=== PATIENT | male | born 1935 | race Caucasian/White ===

== ENCOUNTER → 2016-08-09 | Outpatient (CLI) | payer OTHER ==
[~2016-08-09] MED LIST: ACET-1138 PO; ASPEC81 PO; CLB200 PO; RXC5 PO; SNK PO; [UNRECOGNIZED DRUG - CODE] PO
--- NOTE | 2016-08-09 11:56 | DIAGNOSTIC IMAGING REPORT ---
VIDEO SWALLOW HISTORY: Dysphagia PHARYNGOESOPHAGEAL DYSPHAGIA TECHNIQUE: Video fluoroscopic evaluation of swallowing was performed in the AP and lateral projections by the speech pathology staff. The patient is fed nectar-thick and thin liquid barium, a barium coated wafer, and barium pudding. FLUOROSCOPY TIME: 2 minutes. COMPARISON STUDY: None. FINDINGS: There is normal hyoid excursion and epiglottic deflection. No significant penetration or aspiration identified. Swallowing function is within normal limits. There is severe spasm of the meniscus mid to distal esophagus. Transit of contrast to the stomach is compromised. Esophagram and upper GI suggested as follow-up. IMPRESSION: 1. Study is negative for aspiration. 2. Considerable spasm and irritability of the distal esophagus with poor transit of contrast through the area of spasm and irritability. recommendation is made for endoscopic or UGI/esophagram follow-up 2. Please see the speech pathologist report for detailed findings and recommendations. Electronically signed by: Koko Pink M.D. 08/09/2016 11:55 AM Dictated Date/Time: 08/09/2016 11:52 AM
--- NOTE | 2016-08-09 14:08 | SWALLOWING EVALUATION ---
REFERRING SPEECH PATHOLOGIST: n/a HISTORY: This 81 year-old man was referred for a VFSS at [facility] in order to address c/o solid food dysphagia, weight loss, and increased production of thick, clear saliva. The patient has a PMH significant for colon CA s/p resection and chemotherapy (no XRT), arthritis, and hip replacement. He denies taking any medication for CHAVA. He reports that he recently had an EGD completed, but he could not tell me any results. His women's activities adviser is the referring physician for this study. Currently the patient's diet level is regular as tolerated. PROCEDURE: The patient was seen in the Radiology Department of [facility] for the VFSS. Cursory examination of the oral cavity revealed adequate dentition. Movement of the articulators was WNL. The patient was seated on a stool and was viewed in both the Anterior-Posterior (A-P) and Lateral planes. Volitional phonation exercises completed in the A-P plane revealed bilateral vocal fold movement and vocal intensity within functional limits. In the lateral plane, the patient was given the following boluses: 1 tsp. thin liquid barium x 2, single swallow thin liquid barium self-presented from a cup, sequential swallows of thin liquid barium self-presented from a cup, 1 tsp. nectar-thick liquid barium, single swallow nectar-thick liquid barium self-presented from a cup, 1 tsp. barium pudding, and 1 club cracker with barium pudding. The patient was then repositioned into the A-P plane and given 1 tsp. barium pudding. RESULTS: Oral Stage: No interlabial bolus loss. Cohesive bolus between tongue and palate during oral bolus hold. Timely and efficient mastication. Brisk tongue motion for bolus transport. Complete oral clearance after the swallow. Initiation of pharyngeal swallow when the bolus head was at the posterior angle of the ramus. Oral stage of swallow was WFL. Pharyngeal Stage: Soft palate elevation, laryngeal elevation, anterior hyoid excursion, epiglottic inversion, and laryngeal vestibular closure were all complete. Pharyngeal stripping wave is diminished. Pharyngeal contraction is complete. Distention and duration of PES opening was complete. No contrast between tongue base and pharyngeal wall. Complete pharyngeal clearance after the swallow. No penetration or aspiration during this study. The pharyngeal stage of the swallow was WFL. Esophageal Stage: Proximal esophageal bolus retention with appearance of nutcracker esophagus. SUMMARY/RECOMMENDATIONS: This patient presents with normal oral-pharyngeal swallowing; however he demonstrates marked s/s esophageal dysfunction. The following is recommended: 1. SLIPPERY diet: choose foods that are moist, loose, slippery; avoid foods that are dry, doughy, thick, tough; use condiments liberally to make foods slippery 2. Compensatory Strategies: sit fully upright for all meals and remain upright for 30 minutes after eating/drinking; keep head of bed elevated at least 30-degrees at ALL times (even for sleep); alternate solids and liquids 1:1 during meals; eat small amounts more frequently during the day instead of large meals; stay well hydrated; avoid icy cold beverages with meals 3. Consideration of completion of Upper GI Series or Barium Swallow Study. 4. Pt also c/o issues with irregular bowel movement. Should consider further f/u with gastroenterology. A summary of the results and recommendations was discussed with the patient and his immediately following the study. They verbalized understanding and are expecting f/u with the referring physician. Fortunately, Dr. Barba was in the hospital today and I was able to directly report the results of this study to him and show him the images. He will f/u with the patient. Thank you for referral of this patient. Please contact me at if any additional information is needed.
== END | disposition home or self-care (01) ==
LOC: C.RAD 11:02
PROVIDERS: ATTEND Internal Medicine Gastroenterology
DX: R13.14 Dysphagia, pharyngoesophageal phase (principal); R63.3 Feeding difficulties

== ENCOUNTER → 2016-09-05 | Outpatient (CLI) | payer OTHER ==
--- NOTE | 2016-09-05 10:35 | DIAGNOSTIC IMAGING REPORT ---
(BARIUM SWALLOW) ESOPHAGUS CLINICAL HISTORY: ESOPHAGEAL DYSPHAGIAdysphagia COMPARISON STUDY: None FLUOROSCOPY TIME: 3.1 minutes. FINDINGS: Patient initiates swallowing function well. There is no evidence for aspiration. Esophageal motility of the proximal to mid aspect of the esophagus is diminished. There is moderate esophageal distention. There is a fixed lateral hernia. There is evidence for spasm of the distal esophagus at the gastroesophageal junction. There is a large fixed hiatal hernia. There is moderate gastroesophageal reflux. IMPRESSION: 1. Findings of developing achalasia of the proximal to mid esophagus. 2. Fixed hiatal hernia with mild gastroesophageal reflux. 3. Spasm of the distal esophagus and gastroesophageal junction 4. The barium tablet does not pass to the stomach secondary to esophageal junction spasm. Electronically signed by: Koko Pink M.D. 09/05/2016 10:34 AM Dictated Date/Time: 09/05/2016 10:30 AM
== END | disposition home or self-care (01) ==
LOC: C.RAD 09:55
PROVIDERS: ATTEND Internal Medicine Gastroenterology
DX: R13.14 Dysphagia, pharyngoesophageal phase (principal); K44.9 Diaphragmatic hernia without obstruction or gangrene; K22.4 Dyskinesia of esophagus

== ENCOUNTER 2019-03-31 09:37 | Inpatient (IN) ==
--- NOTE | 2019-03-31 10:00 | Emergency Department Note ---
Entered by Sebastian Van acting as a scribe for History of Present Illness General Chief complaint: GI Assessment Stated complaint: CONSTIPATION OR BLOCKAGE Time Seen by Provider: 03/31/19 09:44 Source: patient Limitations: no limitations History of Present Illness Onset (ago): day(s) 2 Location: abdomen Pain Consistency: + intermittent Maximum Pain Intensity: 0 Quality: + other (bloating) Associated symptoms: + other (straining for produce bowel movement); no loss of appetite The patient is a 83 year old male who presents to the Emergency Room with complaints of intermittent abdominal bloating. The patient states he had an X- Ray done two days ago and notes he had a lot of bloating. He states the X-Ray showed a blockage. He states he never had this before and denies having bowel obstruction before. He states his last bowel movement was yesterday. He states he had to strain for the bowel movement and states that is abnormal for him. He notes he has been having diarrhea for a couple years. The patient denies nausea, fevers, and blood in bowel movements. The patient states he had colon cancer 16 years ago. He states he had surgery to take out the cancer. He notes he had a colonoscopy a couple years ago. he states he had previous bowel surgery. He states he has been eating well. He states he has not been drinking enough water but that he drinks a lot of tea. He states he does not take any medications. Denies any recent illness. No recent trauma. Patient said he saw his GI specialist on Friday due to his recent bloating and constipation and they sent him for an outpatient x-ray. He states he was called this morning and told to come to the ER immediately. [facility] records show the patient's X-Ray results. Impression: Probable pneumoperitoneum, highly concerning for bowel perforation. Recommend CT for further evaluation. Home Medications Home Medications Medication Instructions Recorded Confirmed Type CHRIS (MORINDA CITRIFOLIA) (CHRIS 4 oz PO QAM #0 07/04/15 03/31/19 History JUICE) Tumeric 1 tab PO QAM 03/31/19 03/31/19 History loperamide [Imodium A-D] 2 mg PO Q2D@0800 03/31/19 03/31/19 History multivitamin 2 tab PO UD 03/31/19 03/31/19 History Allergies Allergy/AdvReac Type Severity Reaction Status Date / Time No Known Allergies Allergy Unverified 03/31/19 10:19 Past Med/Surg History Medical History Colon cancer Parkinson disease Surgical History S/P laparoscopic procedure Family History Other Family history non-contributory Social History Preferred Language: Welsh Communication Ability: Effective 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 and A total of 10 systems reviewed and were otherwise negative Physical Exam Vital Signs Vital Signs - 24 hr 03/31/19 09:40 03/31/19 10:07 03/31/19 10:30 Temperature 36.4 C L Temperature Source Oral Pulse Rate 77 66 63 Pulse Rate from SpO2 Sensor 69 63 Respiratory Rate 18 19 19 Respiratory Effort / Characteristics Non-Labored Spontaneous Respiratory Depth Normal Respiratory Pattern Regular Blood Pressure 162/82 H 144/75 H 115/67 Blood Pressure Mean 108 82 86 Blood Pressure Position Sitting Pulse Oximetry 99 96 97 Oxygen Delivery Method Room Air Room Air Room Air Sepsis Recent Fever Within 48 Hours No Sepsis New/Unexplained Change in Mental Status No Sepsis Action Taken by Nursing No Action Required 03/31/19 11:00 03/31/19 11:30 03/31/19 12:00 Temperature Temperature Source Pulse Rate 68 61 63 Pulse Rate from SpO2 Sensor 67 62 62 Respiratory Rate 17 19 17 Respiratory Effort / Characteristics Respiratory Depth Respiratory Pattern Blood Pressure 126/76 129/78 138/84 Blood Pressure Mean 96 101 94 Blood Pressure Position Pulse Oximetry 98 98 99 Oxygen Delivery Method Room Air Sepsis Recent Fever Within 48 Hours Sepsis New/Unexplained Change in Mental Status Sepsis Action Taken by Nursing 03/31/19 12:47 03/31/19 13:12 03/31/19 13:30 Temperature Temperature Source Pulse Rate 60 62 61 Pulse Rate from SpO2 Sensor 59 L Respiratory Rate 18 14 18 Respiratory Effort / Characteristics Respiratory Depth Respiratory Pattern Blood Pressure 131/76 157/87 H 149/89 H Blood Pressure Mean 87 109 116 Blood Pressure Position Pulse Oximetry 99 99 96 Oxygen Delivery Method Sepsis Recent Fever Within 48 Hours Sepsis New/Unexplained Change in Mental Status Sepsis Action Taken by Nursing 03/31/19 14:01 03/31/19 14:14 03/31/19 14:30 Temperature Temperature Source Pulse Rate 68 61 60 Pulse Rate from SpO2 Sensor 64 61 Respiratory Rate 20 16 17 Respiratory Effort / Characteristics Respiratory Depth Respiratory Pattern Blood Pressure 181/92 H 142/88 H 155/81 H Blood Pressure Mean 108 103 119 Blood Pressure Position Pulse Oximetry 95 98 Oxygen Delivery Method Sepsis Recent Fever Within 48 Hours Sepsis New/Unexplained Change in Mental Status Sepsis Action Taken by Nursing 03/31/19 15:00 03/31/19 15:30 Temperature Temperature Source Pulse Rate 66 65 Pulse Rate from SpO2 Sensor 69 Respiratory Rate 18 17 Respiratory Effort / Characteristics Respiratory Depth Respiratory Pattern Blood Pressure 161/85 H Blood Pressure Mean 110 Blood Pressure Position Pulse Oximetry 91 92 Oxygen Delivery Method Sepsis Recent Fever Within 48 Hours Sepsis New/Unexplained Change in Mental Status Sepsis Action Taken by Nursing GENERAL: alert, well appearing, well nourished, no distress, non-toxic EYE EXAM: normal conjunctiva, PERRL and EOM's grossly intact OROPHARYNX: no exudate, no erythema, lips, buccal mucosa, and tongue normal and mucous membranes are moist NECK: supple, no nuchal rigidity, no adenopathy, non-tender LUNGS: Clear to auscultation. Normal chest wall mechanics, no w/r/r HEART: no murmurs, S1 normal and S2 normal ABDOMEN: abdomen soft, non-tender, normo-active bowel sounds, no masses, no rebound or guarding. Well-healed prior surgical scars. Mild tympany to percussion of bilateral upper quadrants. No surgical abdomen. BACK: Back is symmetrical on inspection and there is no deformity, no midline tenderness, no CVA tenderness. SKIN: no rashes and no bruising UPPER EXTREMITIES: upper extremities are grossly normal. FROM, nml pulses b/l. LOWER EXTREMITIES: No pitting edema. FROM, nml pulses b/l. NEURO EXAM: Normal sensorium, cranial nerves II-XII grossly intact, normal speech, no gross weakness of arms, no gross weakness of legs. Course Course 0946: The patient was evaluated in room C4, and a complete history and physical examination were performed. 1330: I spoke with Jumana - Donta VOSS about the patient. She states she will talk to Dr. Ibarra - General Surgery and they will evaluate the patient. 1333: I reevaluated the patient. I updated the patient on his imaging results. 1438: Dr. Ibarra is at bedside to see the patient now. 1454: I spoke with Dr. Ibarra. He recommends getting a CT of the chest and admitting the patient to medicine. 1514: I discussed the patient's case with Dr. Sams - [facility]. He will evaluate the patient for further management. Administered Medications Sodium Chloride (Nss 1000ml) 1,000 mls @ 250 mls/hr IV .Q4H MARY Stop: 04/30/19 09:59 Last Admin: 03/31/19 14:15 Dose: 250 mls/hr Documented by: [id number] Infusion: 03/31/19 14:14 Dose: 0 mls/hr Documented by: [id number] Admin: 03/31/19 10:14 Dose: 250 mls/hr Documented by: [id number] Ioversol (Optiray 320 100ml) 92 ml IV ONCE PRN PRN Reason: Interaction Checking Stop: 04/04/19 13:05 Last Admin: 03/31/19 13:07 Dose: 92 ml Documented by: [id number] Discontinued Medications Magnesium Sulfate/Dextrose (Magnesium Sulfate / D5w) 1 gm in 100 mls @ 100 mls/hr IV ONE ONE Stop: 03/31/19 12:37 Last Infusion: 03/31/19 13:01 Dose: 0 mls/hr Documented by: [id number] Admin: 03/31/19 12:01 Dose: 100 mls/hr Documented by: [id number] Piperacillin Sod/Tazobactam Sod (Zosyn) 4.5 gm in 120 mls @ 240 mls/hr IV NOW ONE Stop: 03/31/19 13:57 Last Infusion: 03/31/19 14:12 Dose: 0 mls/hr Documented by: [id number] Admin: 03/31/19 13:31 Dose: 240 mls/hr Documented by: [id number] Medical Decision Making Differential Diagnosis Differential diagnoses includes but is not limited to gastritis, peptic ulcer disease, GERD, gallbladder disease, pancreatitis, small bowel obstruction, acute coronary syndrome, pericarditis, ischemic bowel, irritable bowel disease, irritable bowel syndrome, appendicitis, diverticulitis, malignancy, hernia, urinary tract infection, torsion, perforation, trauma, infectious. Medical Records Attestation: I reviewed the patient's medical records. Home Medications Current Medication List: was personally reviewed by me Laboratory Data Attestation: I reviewed the patient's lab results. Result diagrams: 03/31/19 10:10 03/31/19 10:10 Lab Results 03/31/19 03/31/19 03/31/19 Range/Units 10:10 10:10 10:10 WBC 7.01 (4.8-10.8) K/uL RBC 4.37 L (4.7-6.1) M/uL Hgb 13.4 L (14.0-18.0) g/dL Hct 39.6 L (42-52) % MCV 90.6 (80-100) fL MCH 30.7 (25-34) pg MCHC 33.8 (32-36) g/dL RDW Std Deviation 44.3 (36.4-46.3) fL RDW Coeff of Jamaal 13.5 (11.5-14.5) % Plt Count 257 (130-400) K/uL MPV 9.9 (7.4-10.4) fL Immature Gran % (Auto) 0.1 % Neut % (Auto) 73.4 % Lymph % (Auto) 17.5 % [place] % (Auto) 6.4 % Eos % (Auto) 2.3 % Baso % (Auto) 0.3 % Immature Gran # (Auto) 0.01 (0.00-0.02) K/uL Neut # (Auto) 5.14 (1.4-6.5) K/uL Lymph # (Auto) 1.23 (1.2-3.4) K/uL [place] # (Auto) 0.45 (0.11-0.59) K/uL Eos # (Auto) 0.16 (0-0.5) K/uL Baso # (Auto) 0.02 (0-0.2) K/uL Sodium 139 (136-145) mmol/L Potassium 4.3 (3.5-5.1) mmol/L Chloride 110 H (98-107) mmol/L Carbon Dioxide 26 (21-32) mmol/L Anion Gap 3.0 (3-11) BUN 19 H (7-18) mg/dl Creatinine 1.19 (0.6-1.4) mg/dl Est Cr Clr Drug Dosing 48.2 ml/min Est GFR ( Amer) 65.5 Est GFR (Non-Af Amer) 56.5 BUN/Creatinine Ratio 16.0 (10-20) Glucose 133 H (70-99) mg/dl POC Lactic Acid William (0.90-1.70) mmol/L Calcium 8.9 (8.5-10.1) mg/dl Magnesium 1.6 L (1.8-2.4) mg/dl Total Bilirubin 0.4 (0.2-1) mg/dl AST 16 (15-37) U/L ALT 21 (12-78) U/L Alkaline Phosphatase 111 (45-117) U/L Total Protein 6.7 (6.4-8.2) gm/dl Albumin 3.6 (3.4-5.0) gm/dl Globulin 3.1 (2.5-4.0) gm/dl Albumin/Globulin Ratio 1.2 (0.9-2) Lipase 61 L (73-393) U/L Urine Color Dark Yellow Urine Appearance Clear (Clear) Urine pH 5.0 (4.5-7.5) Ur Specific [place] 1.018 (1.000-1.030) Urine Protein Negative (Negative) Urine Glucose (UA) Negative (Negative) Urine Ketones Negative (Negative) Urine Blood Negative (Negative) Urine Nitrite Negative (Negative) Urine Bilirubin Negative (Negative) Urine Urobilinogen Negative (Negative) Ur Leukocyte Esterase Negative (Negative) 03/31/19 Range/Units 10:14 WBC (4.8-10.8) K/uL RBC (4.7-6.1) M/uL Hgb (14.0-18.0) g/dL Hct (42-52) % MCV (80-100) fL MCH (25-34) pg MCHC (32-36) g/dL RDW Std Deviation (36.4-46.3) fL RDW Coeff of Jamaal (11.5-14.5) % Plt Count (130-400) K/uL MPV (7.4-10.4) fL Immature Gran % (Auto) % Neut % (Auto) % Lymph % (Auto) % [place] % (Auto) % Eos % (Auto) % Baso % (Auto) % Immature Gran # (Auto) (0.00-0.02) K/uL Neut # (Auto) (1.4-6.5) K/uL Lymph # (Auto) (1.2-3.4) K/uL [place] # (Auto) (0.11-0.59) K/uL Eos # (Auto) (0-0.5) K/uL Baso # (Auto) (0-0.2) K/uL Sodium (136-145) mmol/L Potassium (3.5-5.1) mmol/L Chloride (98-107) mmol/L Carbon Dioxide (21-32) mmol/L Anion Gap (3-11) BUN (7-18) mg/dl Creatinine (0.6-1.4) mg/dl Est Cr Clr Drug Dosing ml/min Est GFR ( Amer) Est GFR (Non-Af Amer) BUN/Creatinine Ratio (10-20) Glucose (70-99) mg/dl POC Lactic Acid William 2.08 H (0.90-1.70) mmol/L Calcium (8.5-10.1) mg/dl Magnesium (1.8-2.4) mg/dl Total Bilirubin (0.2-1) mg/dl AST (15-37) U/L ALT (12-78) U/L Alkaline Phosphatase (45-117) U/L Total Protein (6.4-8.2) gm/dl Albumin (3.4-5.0) gm/dl Globulin (2.5-4.0) gm/dl Albumin/Globulin Ratio (0.9-2) Lipase (73-393) U/L Urine Color Urine Appearance (Clear) Urine pH (4.5-7.5) Ur Specific [place] (1.000-1.030) Urine Protein (Negative) Urine Glucose (UA) (Negative) Urine Ketones (Negative) Urine Blood (Negative) Urine Nitrite (Negative) Urine Bilirubin (Negative) Urine Urobilinogen (Negative) Ur Leukocyte Esterase (Negative) Imaging Data Radiologist's Impression: Radiology results as stated below per my review and the radiologist's interpretation: CT abd pelvis oral and IV con CLINICAL HISTORY: 83 years-old Male presenting with abn outside xrays, ?obstuction/ileus vs perforation. TECHNIQUE: Multidetector CT of the abdomen and pelvis was performed after the administration of oral and intravenous contrast. IV contrast: 93 mL of Optiray 320. One or more dose lowering techniques were used consistent with the principles of ALARA (as low as reasonably achievable), including automatic expo sure control, mA or kV adjustment to individual patient size, and/or use of iterative reconstruction. COMPARISON: None. CT DOSE (mGy.cm): The estimated cumulative dose is 338.06 mGy.cm. FINDINGS: Lodge Officer topogram: Orthopedic hardware. Lung bases: Multichamber enlargement of the heart. Aortic valve calcification. No pericardial or pleural effusion. Minimal dependent changes likely atelectasis. Trace emphysema and bronchitis suggested. Liver: Congenital hypoplasia of the medial segments of the left hepatic lobe. Multiple well-defined hypodense lesions, likely hepatic cysts. Patent hepatic va sculature. Biliary: Mild biliary ductal prominence likely a reservoir effect in the post cholecystectomy state. Gallbladder surgically absent. Pancreas: Moderate parenchymal atrophy. Spleen: Normal. Adrenal glands: Normal. Kidneys and ureters: Nonobstructing calculus at the lower pole of the right kidney measuring 6 mm. No hydronephrosis. Extrarenal pelvis on the right. Ureters nondistended. Bladder: Circumferential bladder wall thickening. Pelvic organs: Prostate enlargement likely secondary to benign prostatic hyperplasia. Streak artifact limits evaluation of the pelvis. Bowel: Diverticulosis of the proximal sigmoid and descending colon without wall thickening or pericolonic inflammatory change. The cecum is oriented superiorly with the terminal ileum suggesting a stretched mesentery. There is dilated small bowel without a focal transition point. Oral contrast has not yet reached the terminal ileum. Gaseous distended distal esophagus. No focal bowel wall discontinuity. Small bowel in the right midabdomen is mildly thick walled and may be abnormal enhancing (series 3 image 231). Peritoneal cavity: Extensive free intraperitoneal gas. Gas is also noted within the mesentery. No extravasation of oral contrast. Lymph nodes: No enlarged lymph nodes in the abdomen or pelvis. Vasculature: Normal noncontrast appearance. Abdominal wall: Fat-containing inguinal hernias, left greater than right. Musculoskeletal: Total right hip arthroplasty. Degenerative changes of the spin e. IMPRESSION: 1. Free intraperitoneal gas consistent with perforated hollow viscus. Surgical consultation is necessary. There is no extravasation of oral contrast from the bowel lumen to identify a site of perforation. Question abnormal enhancing distal loop of ileum and questionable stretching of the mesentery. It is difficult to exclude an internal hernia, however, no focal transition point is identified. No high-grade or complete bowel obstruction. A low-grade obstruction is also difficult to exclude. 2. Diverticulosis coli. No diverticulitis. 3. 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 4. Smoking-related lung injury. The report will be called/faxed according to standard departmental protocol for a critical finding. ACT 112: Negative or not required by law. Electronically signed by: Brendan Parry M.D. 03/31/2019 1:[address] chest wo con CT DOSE: 227.49 mGy.cm HISTORY: Free air pneumoperitoneum TECHNIQUE: Multiaxial CT images of the chest were performed without contrast. A dose lowering technique was utilized adhering to the principles of ALARA. COMPARISON: CT 03/31/2019 FINDINGS: Minimal dependent basilar atelectasis. The lungs otherwise are clear. No evidence for pneumothorax or pneumomediastinum. Mild esophageal wall thickening as mid to distal aspect. Free intraperitoneal air. Several mildly distended loops of small bowel. Scattered free air with in the perigastric space and periportal region. IMPRESSION: 1. Free intraperitoneal air. 2. Mild esophageal wall thickening. 3. Several distended loops of bowel in the upper abdomen. 4. No acute process specifically of the chest. ACT 112: Negative or not required by law. The above report was generated using voice recognition software. It may contain grammatical, syntax or spelling errors. Electronically signed by: Koko Pink M.D. 03/31/2019 3:20 PM ECG Data Attestation: I personally reviewed and interpreted this ECG as follows: Indication: + abdominal pain Rate (beats per minute): 66 Rhythm: + sinus rhythm ECG Intervals/blocks: + First degree AV block, + Normal QRS, + Normal QT, + Normal IN and + Normal QT-c ECG [place]: + Normal ECG ST segments: no ST depression and no ST elevation ECG Findings: no PACs and no PVCs Blood Pressure Blood Pressure Findings: Elevated blood pressure Blood Pressure Disposition: further management by hospitalist MILI Narrative Patient here after outpatient abdominal x-rays 2 days ago showed possible pneumoperitoneum. Patient states he has been feeling well, and did not appear to have a surgical abdomen. Patient did not appear septic. Patient's vital signs were stable. Patient's labs are reassuring, however given concern for atypical x-rays, patient sent for CT imaging which did reveal pneumoperitoneum of unidentified source. Case was discussed with general surgery on-call, Dr. Ibarra who came and evaluated the patient at bedside. I do not feel patient needs to be taken emergently to the operating room given atypical presentation and stable appearance at this time. [place] patient should be evaluated by the hospitalist for additional inpatient management and they will follow in consult. He was in agreement with plan for empiric IV antibiotic coverage at this time, and would also like a CT of the chest obtained to rule out any esophageal source of perforation. Patient was kept aware of all results and was in agreement with plan. No evidence for sepsis, no evidence for active GI bleed, patient well- appearing while in the emergency room. Impression & Plan Pneumoperitoneum, Abdominal distension Discharge Plan Visit Data Chief Complaint: GI Assessment Stated Complaint: CONSTIPATION OR BLOCKAGE ED Provider: Adelia Oliva Discharge Problem: Pneumoperitoneum, Abdominal distension Discharge Instructions Interventions: ED Discharge Assessment Last Done: 03/31/19 17:16 The scribe's documentation has been prepared under my direction and personally reviewed by me in its entirety. I confirm that the note above accurately reflect s all work, treatment, procedures, and medical decision making performed by me.
[2019-03-31] MEDS: SODIUM CHLORIDE 0.9% 1000ML 1,000 ML IV SCH ×3 (10:14→19:06)
[2019-03-31 10:20] LABS: Appearance Urine Clear (Clear); Basophils # (auto) 0.02 K/uL (0-0.2); Basophils % (auto) 0.3 %; Bilirubin Urine Negative (Negative); Blood Urine Negative (Negative); Color Urine Dark Yellow; Eosinophils # (auto) 0.16 K/uL (0-0.5); Eosinophils % (auto) 2.3 %; Glucose Urine UA Negative (Negative); Hematocrit (blood only) 39.6 % (42-52); Hemoglobin 13.4 g/dL (14.0-18.0); Immature Granulocytes # (auto) 0.01 K/uL (0.00-0.02); Immature Granulocytes % (auto) 0.1 %; Ketones Urine Negative (Negative); Leukocyte Esterase Urine Negative (Negative); Lymphocytes # (auto) 1.23 K/uL (1.2-3.4); Lymphocytes % (auto) 17.5 %; Mean Corpuscular Hemoglobin 30.7 pg (25-34); Mean Corpuscular Hgb Conc 33.8 g/dL (32-36); Mean Corpuscular Volume 90.6 fL (80-100); Mean Platelet Volume 9.9 fL (7.4-10.4); Monocytes # (auto) 0.45 K/uL (0.11-0.59); Monocytes % (auto) 6.4 %; Neutrophils # (auto) 5.14 K/uL (1.4-6.5); Neutrophils % (auto) 73.4 %; Nitrite Urine Negative (Negative); Platelet Count 257 K/uL (130-400); Protein Urine Negative (Negative); RDW Coefficient of Variation 13.5 % (11.5-14.5); RDW Standard Deviation 44.3 fL (36.4-46.3); Red Blood Count 4.37 M/uL (4.7-6.1); Specific Gravity Urine 1.018 (1.000-1.030); Urobilinogen Urine Negative (Negative); White Blood Count 7.01 K/uL (4.8-10.8)
[2019-03-31 10:38] LABS: Albumin Level 3.6 gm/dl (3.4-5.0); Calcium 8.9 mg/dl (8.5-10.1); Creatinine Clr Calc Pharmacy 48.2 ml/min; Est GFR (African American) 65.5; Est GFR (Non-African American) 56.5; Magnesium 1.6 mg/dl (1.8-2.4); Potassium 4.3 mmol/L (3.5-5.1)
[2019-03-31 10:40] LABS: Albumin Globulin Ratio 1.2 (0.9-2); Bilirubin,Total 0.4 mg/dl (0.2-1); Globulin 3.1 gm/dl (2.5-4.0); Total Protein 6.7 gm/dl (6.4-8.2)
[2019-03-31] MEDS ORDERED: MAGNESIUM SULFATE / D5W 1 GM/100 ML BAG IV ONE (11:38)
--- NOTE | 2019-03-31 11:48 | Electrocardiogram Report ---
Test Reason : Blood Pressure : / mmHG Vent. Rate : 066 BPM Atrial Rate : 066 BPM P-R Int : 234 ms QRS Dur : 098 ms QT Int : 418 ms P-R-T Axes : 037 051 024 degrees QTc Int : 438 ms Sinus rhythm with 1st degree A-V block Incomplete right bundle branch block Otherwise normal ECG No previous ECGs available Confirmed by Omari Castellanos ([id number]) on 03/31/2019 11:48:09 AM Referred By: Marily Barba Confirmed By:Omari Castellanos
[2019-03-31] MEDS ORDERED: IOVERSOL 100ml IV PRN (13:06)
--- NOTE | 2019-03-31 13:25 | CT Scan Report ---
CT abd pelvis oral and IV con CLINICAL HISTORY: 83 years-old Male presenting with abn outside xrays, ?obstuction/ileus vs perforati on. TECHNIQUE: Multidetector CT of the abdomen and pelvis was performed after the administration of oral and intravenous contrast. IV contrast: 93 mL of Optiray 320. One or more dose lowering techniques wer e used consistent with the principles of ALARA (as low as reasonably achievable), including automatic exposure control, mA or kV adjustment to individual patient size, and/or use of iterative reconstruc tion. COMPARISON: None. CT DOSE (mGy.cm): The estimated cumulative dose is 338.06 mGy.cm. FINDINGS: Paint Prepper topogram: Orthopedic hardware. Lung bases: Multichamber enlargement of the heart. Aortic valve calcification. No pericardial or pleu ral effusion. Minimal dependent changes likely atelectasis. Trace emphysema and bronchitis suggested. Liver: Congenital hypoplasia of the medial segments of the left hepatic lobe. Multiple well-defined h ypodense lesions, likely hepatic cysts. Patent hepatic vasculature. Biliary: Mild biliary ductal prominence likely a reservoir effect in the post cholecystectomy state. Gallbladder surgically absent. Pancreas: Moderate parenchymal atrophy. Spleen: Normal. Adrenal glands: Normal. Kidneys and ureters: Nonobstructing calculus at the lower pole of the right kidney measuring 6 mm. No hydronephrosis. Extrarenal pelvis on the right. Ureters nondistended. Bladder: Circumferential bladder wall thickening. Pelvic organs: Prostate enlargement likely secondary to benign prostatic hyperplasia. Streak artifact limits evaluation of the pelvis. Bowel: Diverticulosis of the proximal sigmoid and descending colon without wall thickening or pericol onic inflammatory change. The cecum is oriented superiorly with the terminal ileum suggesting a stret ched mesentery. There is dilated small bowel without a focal transition point. Oral contrast has not yet reached the terminal ileum. Gaseous distended distal esophagus. No focal bowel wall discontinuity . Small bowel in the right midabdomen is mildly thick walled and may be abnormal enhancing (series 3 image 231). Peritoneal cavity: Extensive free intraperitoneal gas. Gas is also noted within the mesentery. No ext ravasation of oral contrast. Lymph nodes: No enlarged lymph nodes in the abdomen or pelvis. Vasculature: Normal noncontrast appearance. Abdominal wall: Fat-containing inguinal hernias, left greater than right. Musculoskeletal: Total right hip arthroplasty. Degenerative changes of the spine. IMPRESSION: 1. Free intraperitoneal gas consistent with perforated hollow viscus. Surgical consultation is [facility]. There is no extravasation of oral contrast from the bowel lumen to identify a site of perforati on. Question abnormal enhancing distal loop of ileum and questionable stretching of the mesentery. It is difficult to exclude an internal hernia, however, no focal transition point is identified. No hig h-grade or complete bowel obstruction. A low-grade obstruction is also difficult to exclude. 2. Diverticulosis coli. No diverticulitis. 3. 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 4. Smoking-related lung injury. The report will be called/faxed according to standard departmental protocol for a critical finding. ACT 112: Negative or not required by law. Electronically signed by: Brendan Parry M.D. 03/31/2019 1:23 PM
[2019-03-31] MEDS ORDERED: PIPERACILL/TAZOBAC CONSULT ACTIVE PRN (13:28)
[2019-03-31] MEDS ORDERED: PIPERACILLIN/TAZOBACTAM 4.5 GM/120 ML BAG IV ONE (13:28)
--- NOTE | 2019-03-31 14:09 | Surgery Consultation ---
Date of Consultation March 31, 2019 Assessment & Plan (1) Free intraperitoneal air: This is an 83y M with a PMH of colon resection in 2001 and hiatal hernia repair ~1yr ago who presents to the [facility] ED for evaluation of pneumoperitoneum found on abdominal imaging as an outpatient. CT scan shows free intraperitoneal gas consistent with perforated hollow viscus, no extravasation of contrast noted. Upon evaluation patient denies any new abdominal symptoms and was riding his tractor prior to coming into the ED. Patient's vital signs are stable and he does not have an elevated WBC. On abdominal exam he is soft and nontender. He is bloated but says this is not outside of his normal. Despite the findings on imaging patient does not exhibit acute symptoms of a GI perforation. At this time would recommend admission for observation under medicine, keep NPO and start IV abx. ED will order a CT chest as well to rule out any thoracic source that could be contributing to findings. He does have a h/o esophageal dysmotility.We will continue to follow along. Supervising Physician Co-Signing Physician Notes Patient seen and examined, labs and imaging reviewed, agree with above. 83-year-old male with history of right hemicolectomy with ileocolic anastomosis 18 years ago for colon cancer and hiatal hernia repair in [place] about 2 years ago presented to gastroenterology on Friday for intermittent abdominal bloating and explosive diarrhea. This is been going on for the past 2 years. During his work-up he had a routine x-ray performed of his abdomen which showed pneumoperitoneum. I attempted to call him yesterday but he did not respond, and this morning he was called and told report to the emergency department. He is completely asymptomatic with no abdominal pain, and in fact his abdomen feels less bloated. He denies any fevers or nausea or vomiting. He has stable vital signs with no fever. On exam his abdomen is moderately distended but this is baseline for him. He has a well-healed midline scar and some port site scars and a diastases. He has absolutely no tenderness to palpation or peritoneal signs. His labs are unremarkable with a normal white count no left shift. CT scan with oral and IV contrast showed intra-abdominal free air along with some subcutaneous air in his anterior abdominal wall. There was no extravasation of contrast. There is no immediately identifiable point for the perforation. Asymptomatic pneumoperitoneum of unknown etiology. Denies any recent instrumentation. Does have a history of esophageal dysmotility following his wrap along with a history of colon cancer status post resection. At this point, he is completely stable, asymptomatic, with normal labs and no peritonitis on exam. We discussed his options to include observation with antibiotics and continued work-up versus diagnostic laparoscopy or laparotomy. He elects for observation. Recommend admission to medicine service Broad-spectrum antibiotics N.p.o. CT chest GI consult PPI Surgery will continue to follow, may need repeat imaging as contrast traverses the distal ileum and colon. Please call with any significant change in vital signs or exam. History of Present Illness History of Present Illness This is a 83y M with a PMH of colon resection in 2001 for colon ca, cholecystectomy, and hiatal hernia repair ~1 year ago who was called to be evaluated in the ED on 03/31/19 after he underwent an abdominal x-ray that showed concern for possible pneumoperitoneum vs obstruction. Patient states he has dealt with intermittent abdominal bloating and gas for the past year or so. He called his GI Dr. for an appointment due to ongoing symptoms who ordered a KUB that showed possible concern for pneumoperitoneum and the pt was asked to come to the ED for further evaluation. In the ED a CT a/p revealed free intraperitoneal gas consistent with perforated hollow viscus. Vital signs are stable. Labs reveal a WBC 7 and lactate of 2. Patient states that he sometimes has lower abdominal pain that he takes Pepto-bismol for and it goes away. Patient states that today he was out riding his tractor before he received the phone call to come in. At this time patient denies any abdominal pain, nausea/vomiting, fevers/chills, shortness of breath/chest pain. He does endorse some abdominal bloat, but it is not any worse than what he is used to. His last BM was yesterday and he denies any change in bowel habits. He normally has 1BM a day, with infrequent bouts of diarrhea. Allergies Allergy/AdvReac Type Severity Reaction Status Date / Time No Known Allergies Allergy Unverified 03/31/19 10:19 Home Medications Home Medications Medication Instructions Recorded Confirmed Type CHRIS (MORINDA CITRIFOLIA) (CHRIS 4 oz PO QAM #0 07/03/03/31/19 History JUICE) Tumeric 1 tab PO QAM 03/31/19 03/31/19 History loperamide [Imodium A-D] 2 mg PO Q2D@0800 03/31/19 03/31/19 History multivitamin 2 tab PO UD 03/31/19 03/31/19 History Patient History Medical History Colon cancer Parkinson disease Surgical History S/P laparoscopic procedure Family History Other Family history non-contributory Social History Preferred Language: Icelandic Feels Safe at Home: Yes Smoking Status: Never smoker Review of Systems Constitutional: no fever and no chills Respiratory: no shortness of breath Cardiovascular: no chest pain Gastrointestinal: + bloating; no abdominal pain, no nausea, no vomiting and no change in bowel habits Physical Exam Physical Exam: awake/alert Constitutional: well developed and well nourished; no acute distress and not ill appearing Respiratory: normal respiratory effort Gastrointestinal (Abdomen): Inspection/Auscultation: + abdomen distended and + abdominal surgical scar (midline abdominal scar) Percussion/Palpation: abdomen soft; abdomen nontender Results & Data Vital Signs (Past 12 Hours) Vital Signs Temp Pulse Resp BP Pulse Ox 03/31/19 13:12 62 14 157/87 H 99 03/31/19 12:47 60 18 131/76 99 03/31/19 12:00 63 17 138/84 99 03/31/19 11:30 61 19 129/78 98 03/31/19 11:00 68 17 126/76 98 03/31/19 10:30 63 19 115/67 97 03/31/19 10:07 66 19 144/75 H 96 03/31/19 09:40 36.4 C L 77 18 162/[address] abd pelvis oral and IV con CLINICAL HISTORY: 83 years-old Male presenting with abn outside xrays, ?obstuction/ileus vs perforation. TECHNIQUE: Multidetector CT of the abdomen and pelvis was performed after the administration of oral and intravenous contrast. IV contrast: 93 mL of Optiray 320. One or more dose lowering techniques were used consistent with the principles of ALARA (as low as reasonably achievable), including automatic exposure control, mA or kV adjustment to individual patient size, and/or use of iterative reconstruction. COMPARISON: None. CT DOSE (mGy.cm): The estimated cumulative dose is 338.06 mGy.cm. FINDINGS: High School Principal topogram: Orthopedic hardware. Lung bases: Multichamber enlargement of the heart. Aortic valve calcification. No pericardial or pleural effusion. Minimal dependent changes likely atelectasis. Trace emphysema and bronchitis suggested. Liver: Congenital hypoplasia of the medial segments of the left hepatic lobe. Multiple well-defined hypodense lesions, likely hepatic cysts. Patent hepatic vasculature. Biliary: Mild biliary ductal prominence likely a reservoir effect in the post cholecystectomy state. Gallbladder surgically absent. Pancreas: Moderate parenchymal atrophy. Spleen: Normal. Adrenal glands: Normal. Kidneys and ureters: Nonobstructing calculus at the lower pole of the right kidney measuring 6 mm. No hydronephrosis. Extrarenal pelvis on the right. Ureters nondistended. Bladder: Circumferential bladder wall thickening. Pelvic organs: Prostate enlargement likely secondary to benign prostatic hyperplasia. Streak artifact limits evaluation of the pelvis. Bowel: Diverticulosis of the proximal sigmoid and descending colon without wall thickening or pericolonic inflammatory change. The cecum is oriented superiorly with the terminal ileum suggesting a stretched mesentery. There is dilated small bowel without a focal transition point. Oral contrast has not yet reached the terminal ileum. Gaseous distended distal esophagus. No focal bowel wall discontinuity. Small bowel in the right midabdomen is mildly thick walled and may be abnormal enhancing (series 3 image 231). Peritoneal cavity: Extensive free intraperitoneal gas. Gas is also noted within the mesentery. No extravasation of oral contrast. Lymph nodes: No enlarged lymph nodes in the abdomen or pelvis. Vasculature: Normal noncontrast appearance. Abdominal wall: Fat-containing inguinal hernias, left greater than right. Musculoskeletal: Total right hip arthroplasty. Degenerative changes of the spine. IMPRESSION: 1. Free intraperitoneal gas consistent with perforated hollow viscus. Surgical consultation is necessary. There is no extravasation of oral contrast from the bowel lumen to identify a site of perforation. Question abnormal enhancing distal loop of ileum and questionable stretching of the mesentery. It is difficult to exclude an internal hernia, however, no focal transition point is identified. No high-grade or complete bowel obstruction. A low-grade obstruction is also difficult to exclude. 2. Diverticulosis coli. No diverticulitis. 3. 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 4. Smoking-related lung injury. The report will be called/faxed according to standard departmental protocol for a critical finding. ACT 112: Negative or not required by law. Electronically signed by: Brendan Parry M.D. 03/31/2019 1:23 PM PG Care Time/CCT Total # of Minutes Spent Total Time Spent with Patient: Total time spent is greater than 50% in coordination of care (as documented) at patient's floor/unit and/or counseling patient:
--- NOTE | 2019-03-31 15:22 | CT Scan Report ---
CT chest wo con CT DOSE: 227.49 mGy.cm HISTORY: Free air pneumoperitoneum TECHNIQUE: Multiaxial CT images of the chest were performed without contrast. A dose lowering techni que was utilized adhering to the principles of ALARA. COMPARISON: CT 03/31/2019 FINDINGS: Minimal dependent basilar atelectasis. The lungs otherwise are clear. No evidence for pneum othorax or pneumomediastinum. Mild esophageal wall thickening as mid to distal aspect. Free intraperi toneal air. Several mildly distended loops of small bowel. Scattered free air with in the perigastric space and periportal region. IMPRESSION: 1. Free intraperitoneal air. 2. Mild esophageal wall thickening. 3. Several distended loops of bowel in the upper abdomen. 4. No acute process specifically of the chest. ACT 112: Negative or not required by law. The above report was generated using voice recognition software. It may contain grammatical, syntax or spelling errors. Electronically signed by: Koko Pink M.D. 03/31/2019 3:20 PM
[2019-03-31] MEDS ORDERED: FAMOTIDINE 20 MG in SYRINGE 3 ML IV STA (18:07)
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
[2019-03-31] MEDS ORDERED: PANTOprazole 80 MG in DEXTROSE 5% 100 ML IV ONE (18:45)
[2019-03-31] MEDS: LACTATED RINGER'S 1,000 ML IV SCH (19:02)
[2019-03-31] MEDS: PANTOprazole 40 MG in DEXTROSE 5% 100 ML IV SCH (19:38)
[2019-03-31] MEDS: PIPERACILLIN/TAZOBACTAM 3.375 GM in DEXTROSE 5% 100 ML IV SCH (20:32)
[2019-04-01] MEDS: PANTOprazole 40 MG in DEXTROSE 5% 100 ML IV SCH ×5 (01:04→19:38)
[2019-04-01] MEDS: PIPERACILLIN/TAZOBACTAM 3.375 GM in DEXTROSE 5% 100 ML IV SCH ×2 (04:15→12:09)
[2019-04-01] MEDS: LACTATED RINGER'S 1,000 ML IV SCH ×3 (05:11→21:31)
[2019-04-01 06:54] LABS: Basophils # (auto) 0.03 K/uL (0-0.2); Basophils % (auto) 0.5 %; Eosinophils # (auto) 0.34 K/uL (0-0.5); Eosinophils % (auto) 5.2 %; Hematocrit (blood only) 39.8 % (42-52); Hemoglobin 13.1 g/dL (14.0-18.0); Immature Granulocytes # (auto) 0.01 K/uL (0.00-0.02); Immature Granulocytes % (auto) 0.2 %; Mean Corpuscular Hemoglobin 29.6 pg (25-34); Mean Corpuscular Hgb Conc 32.9 g/dL (32-36); Monocytes # (auto) 0.49 K/uL (0.11-0.59); Monocytes % (auto) 7.6 %; Neutrophils # (auto) 4.51 K/uL (1.4-6.5); Neutrophils % (auto) 69.5 %; Platelet Count 244 K/uL (130-400); RDW Coefficient of Variation 13.4 % (11.5-14.5); RDW Standard Deviation 44.5 fL (36.4-46.3); Red Blood Count 4.42 M/uL (4.7-6.1); White Blood Count 6.48 K/uL (4.8-10.8)
[2019-04-01 07:04] LABS: INR 1.1 (0.9-1.1); Partial Thromboplastin Ratio 1.1; Partial Thromboplastin Time 29.1 Seconds (21.0-31.0); Prothrombin Time 11.1 Seconds (9.0-12.0)
[2019-04-01 07:32] LABS: BUN Creatinine Ratio 11.3 (10-20); Calcium 8.6 mg/dl (8.5-10.1); Creatinine Clr Calc Pharmacy 46.9 ml/min; Est GFR (African American) 66.2; Est GFR (Non-African American) 57.1; Magnesium 1.7 mg/dl (1.8-2.4); Potassium 3.8 mmol/L (3.5-5.1)
[2019-04-01 07:35] LABS: Bilirubin,Total 0.8 mg/dl (0.2-1); Globulin 2.9 gm/dl (2.5-4.0); Total Protein 5.9 gm/dl (6.4-8.2)
[2019-04-01] MEDS ORDERED: CEROVITE ADV FORMULA TAB PO SCH (09:00)
[2019-04-01] MEDS ORDERED: NONI PO SCH (09:00)
[2019-04-01] MEDS ORDERED: TUMERIC PO SCH (09:00)
--- NOTE | 2019-04-01 09:03 | Surgery Progress Note ---
Date of Service April 01, 2019 Assessment & Plan (1) Pneumoperitoneum: 83-year-old male with asymptomatic and incidental pneumoperitoneum of unknown etiology. At this time it does not appear that require surgical intervention. We will obtain another abdominal x-ray today, and await GI co nsultation for their recommendations and thoughts. Repeat abdominal x-ray Await GI recommendations Possibly repeat CT scan to see if the contrast extends into the colon.extravasation No surgical intervention indicated at this time Continue antibiotics Possible clears later today Subjective 83-year-old male admitted with incidental finding of pneumoperitoneum on abdominal x-ray performed on Friday for intermittent abdominal bloating and diarrhea. He remains completely asymptomatic with no abdominal pain. His vital signs have been normal as have his labs. CT of the chest yesterday revealed no pneumomediastinum to indicate esophageal perforation. Physical Exam Constitutional: WD/WN, vitals as above Gastrointestinal (Abdomen): normal bowel sounds, soft, nontender, no hepatosplenomegaly Inspection/Auscultation: + abdominal surgical incision Percussion/Palpation: + tympanic to percussion; no guarding and abdomen not rigid Results & Data Vital Signs (Past 12 Hours) Vital Signs Temp Pulse Pulse Resp BP Pulse Ox 04/01/19 07:34 55 L 04/01/19 07:20 36.4 C L 59 L 18 166/85 H 98 04/01/19 04:00 36.5 C 54 L 20 169/88 H 97 04/01/19 01:14 65 03/31/19 23:00 36.5 C 57 L 20 150/78 H 97 Laboratory Results Laboratory Results - last 24 hr 03/31/19 03/31/19 03/31/19 10:10 10:10 10:10 WBC 7.01 RBC 4.37 L Hgb 13.4 L Hct 39.6 L MCV 90.6 MCH 30.7 MCHC 33.8 RDW Std Deviation 44.3 RDW Coeff of Jamaal 13.5 Plt Count 257 MPV 9.9 Immature Gran % (Auto) 0.1 Neut % (Auto) 73.4 Lymph % (Auto) 17.5 Tripp % (Auto) 6.4 Eos % (Auto) 2.3 Baso % (Auto) 0.3 Immature Gran # (Auto) 0.01 Neut # (Auto) 5.14 Lymph # (Auto) 1.23 Tripp # (Auto) 0.45 Eos # (Auto) 0.16 Baso # (Auto) 0.02 PT INR APTT PTT Ratio Sodium 139 Potassium 4.3 Chloride 110 H Carbon Dioxide 26 Anion Gap 3.0 BUN 19 H Creatinine 1.19 Est Cr Clr Drug Dosing 48.2 Est GFR ( Amer) 65.5 Est GFR (Non-Af Amer) 56.5 BUN/Creatinine Ratio 16.0 Glucose 133 H POC Glucose POC Lactic Acid William Calcium 8.9 Magnesium 1.6 L Total Bilirubin 0.4 AST 16 ALT 21 Alkaline Phosphatase 111 Total Protein 6.7 Albumin 3.6 Globulin 3.1 Albumin/Globulin Ratio 1.2 Lipase 61 L Urine Color Dark Yellow Urine Appearance Clear Urine pH 5.0 Ur Specific [place] 1.018 Urine Protein Negative Urine Glucose (UA) Negative Urine Ketones Negative Urine Blood Negative Urine Nitrite Negative Urine Bilirubin Negative Urine Urobilinogen Negative Ur Leukocyte Esterase Negative Blood Type Antibody Screen 03/31/19 03/31/19 04/01/19 10:14 18:17 06:31 WBC 6.48 RBC 4.42 L Hgb 13.1 L Hct 39.8 L MCV 90.0 MCH 29.6 MCHC 32.9 RDW Std Deviation 44.5 RDW Coeff of [place] 13.4 Plt Count 244 MPV 10.0 Immature Gran % (Auto) 0.2 Neut % (Auto) 69.5 Lymph % (Auto) 17.0 Tripp % (Auto) 7.6 Eos % (Auto) 5.2 Baso % (Auto) 0.5 Immature Gran # (Auto) 0.01 Neut # (Auto) 4.51 Lymph # (Auto) 1.10 L Tripp # (Auto) 0.49 Eos # (Auto) 0.34 Baso # (Auto) 0.03 PT INR APTT PTT Ratio Sodium Potassium Chloride Carbon Dioxide Anion Gap BUN Creatinine Est Cr Clr Drug Dosing Est GFR ( Amer) Est GFR (Non-Af Amer) BUN/Creatinine Ratio Glucose POC Glucose 100 H POC Lactic Acid William 2.08 H Calcium Magnesium Total Bilirubin AST ALT Alkaline Phosphatase Total Protein Albumin Globulin Albumin/Globulin Ratio Lipase Urine Color Urine Appearance Urine pH Ur Specific [place] Urine Protein Urine Glucose (UA) Urine Ketones Urine Blood Urine Nitrite Urine Bilirubin Urine Urobilinogen Ur Leukocyte Esterase Blood Type Antibody Screen 04/01/19 04/01/19 04/01/19 06:31 06:31 06:31 WBC RBC Hgb Hct MCV MCH MCHC RDW Std Deviation RDW Coeff of [place] Plt Count MPV Immature Gran % (Auto) Neut % (Auto) Lymph % (Auto) Tripp % (Auto) Eos % (Auto) Baso % (Auto) Immature Gran # (Auto) Neut # (Auto) Lymph # (Auto) Tripp # (Auto) Eos # (Auto) Baso # (Auto) PT 11.1 INR 1.1 APTT 29.1 PTT Ratio 1.1 Sodium 140 Potassium 3.8 Chloride 110 H Carbon Dioxide 27 Anion Gap 3.0 BUN 13 Creatinine 1.18 Est Cr Clr Drug Dosing 46.9 Est GFR ( Amer) 66.2 Est GFR (Non-Af Amer) 57.1 BUN/Creatinine Ratio 11.3 Glucose 91 POC Glucose POC Lactic Acid Iw[place]iam Calcium 8.6 Magnesium 1.7 L Total Bilirubin 0.8 AST 12 L ALT 16 Alkaline Phosphatase 91 Total Protein 5.9 L Albumin 3.0 L Globulin 2.9 Albumin/Globulin Ratio 1.0 Lipase Urine Color Urine Appearance Urine pH Ur Specific [place] Urine Protein Urine Glucose (UA) Urine Ketones Urine Blood Urine Nitrite Urine Bilirubin Urine Urobilinogen Ur Leukocyte Esterase Blood Type Pending Antibody Screen Pending PG Care Time/CCT Total # of Minutes Spent Total Time Spent with Patient: Total time spent is greater than 50% in coordination of care (as documented) at patient's floor/unit and/or counseling patient:
--- NOTE | 2019-04-01 10:17 | XRay Report ---
XR abdomen 2V w PA chest CLINICAL HISTORY: 83 years-old Male presenting with f/u pneumoperitoneum. TECHNIQUE: PA view of the chest and supine and upright views of the abdomen were obtained. COMPARISON: CT from . FINDINGS: Atherosclerosis of aortic arch. Cardiac silhouette enlarged. Lungs mildly hyperinflated. No focal opa city. No pleural effusion or pneumothorax. Pneumoperitoneum noted beneath the diaphragm. Oral contrast in the large bowel. Mild gaseous distenti on of large bowel. Cholecystectomy clips. Allowing for bowel gas and stool, no calcifications to suggest nephrolithiasis. Right nephrolithiasis noted. Degenerative changes of the spine. Total right hip arthroplasty. IMPRESSION: 1. Cardiomegaly. 2. Apparent hyperinflation could suggest an underlying obstructive lung disease or emphysema. No foc al infiltrate. 3. Pneumoperitoneum. This was noted on prior CT. 4. No gross bowel obstruction on this radiograph. ACT 112: Negative or not required by law. Electronically signed by: Brendan Parry M.D. 04/01/2019 10:16 AM
--- NOTE | 2019-04-01 11:27 | Gastrointestinal Consultation ---
Date of Consultation April 01, 2019 Assessment & Plan (1) Pneumoperitoneum: - Abd exam is benign, soft, nontender. Etiology of imaging findings is unclear. - Will defer to surgery re: work-up and management - No plans for endoscopy at this time - Reasonable to continue PPI (2) Abdominal bloating: Supervising Physician Co-Signing Physician Notes I have seen and examined the patient with Shelly Mirza PA-c whose note reflects our findings and plan. Patient is completely asymptomatic in the setting of pneumoperitoneum on imaging. No extravasation of contrast to indicate source. Abd exam is benign. not distended. No pain. Has had problems with diarrhea since time of his paraesophageal hernia repair a year ago. imaging in July did not show free air. No heartburn. Imaging showed some mild thickening at GE junction. On PPI. Seen by surgery and being treated conservatively with bowel rest and IV abx. patient looks well despite imaging findings. No plan for endoscopy. Can consider a gastrograffin swallow if concern about esophagus as source. History of Present Illness Reason for Consultation: w/u for etiology of free air, ?esophageal source Attending Physician: Nj Castaneda History of Present Illness Mr. Jean is an 83 y/o male with PMHx paraesophageal hernia repair by Dr. Tompkins on 03/19/18, h/o colon CA s/p resection and tx with chemo in 2001 in [place], last colonoscopy < [address] Teran in [place], h/o achalasia, who has had approx 2 years of abd bloating. He was seen by [facility] as an outpt on 03/29 for bloating, KUB was ordered and done on 03/30 demonstrating "probable pneumoperitoneum, highly concerning for bowel perforation. He was then sent to the ER yesterday with these findings. On arrival he had CTAP with oral and IV contrast demonstrating free intraperitoneal gas c/w perforated hollow viscus. CT chest demonstrated free intraperitoneal air. Surgery was consulted who recommended conservative management as the pt had a soft abd without abd pain; recommended IV ABX, made NPO and start PPI. 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 Labs are stable with WBC, HGB, renal fxn WNL. He is hemodynamically stable. Stools move 1-2 times daily and alternate between loose and semi-formed; brown. No melena, hematochezia, hematochezia, n/v/, heartburn, regurgitation; he is passing flatus, denies dysphagia, change in appetite Allergies Allergy/AdvReac Type Severity Reaction Status Date / Time No Known Allergies Allergy Unverified 03/31/19 10:19 Home Medications Home Medications Medication Instructions Recorded Confirmed Type CHRIS (MORINDA CITRIFOLIA) (CHRIS 4 oz PO QAM #0 07/04/15 03/31/19 History JUICE) Tumeric 1 tab PO QAM 03/31/19 03/31/19 History loperamide [Imodium A-D] 2 mg PO Q2D@0800 03/31/19 03/31/19 History multivitamin 2 tab PO UD 03/31/19 03/31/19 History Patient History Medical History Colon cancer Parkinson disease Surgical History S/P laparoscopic procedure Family History Other Family history non-contributory Social History Preferred Language: Belarusian Communication Ability: Effective [place] Required: No Beliefs That Will Affect Care: None Current Living Situation: Spouse Other Information That Helps Us Care for You: No Feels Safe at Home: Yes Safety Concerns: Feels Safe At This Time Smoking Status: Never smoker Hx Alcohol Use: No Hx Substance Use: No Review of Systems Constitutional: no fever, no chills, no fatigue and no anorexia Respiratory: no cough, no chest congestion and no dyspnea Cardiovascular: no chest pain, no dyspnea and no edema Gastrointestinal: as per Subjective / HPI Physical Exam Constitutional: WD/WN, vitals as above Seated upright in bedside chair Eyes: sclerae not anicteric Respiratory: normal respiratory effort, lungs clear to auscultation Cardiovascular: RRR, no murmur, no edema Gastrointestinal (Abdomen): normal bowel sounds, soft, nontender, no hepatosplenomegaly (abd is nondistended, no peritoneal signs ) Skin: no rashes, warm and dry Neurologic: moves all extremities; no focal motor deficits Psychiatric: A+Ox3, euthymic affect Results & Data Vital Signs (Past 12 Hours) Vital Signs Temp Pulse Pulse Resp BP Pulse Ox 04/01/19 11:22 36.8 C 58 L 18 148/80 H 97 04/01/19 07:34 55 L 04/01/19 07:20 36.4 C L 59 L 18 166/85 H 98 04/01/19 04:00 36.5 C 54 L 20 169/88 H 97 04/01/19 01:14 65 Laboratory Results 04/01/19 04/01/19 04/01/19 Range/Units 06:31 06:31 06:31 WBC (4.8-10.8) K/uL RBC (4.7-6.1) M/uL Hgb (14.0-18.0) g/dL Hct (42-52) % MCV (80-100) fL MCH (25-34) pg MCHC (32-36) g/dL RDW Std Deviation (36.4-46.3) fL RDW Coeff of Jamaal (11.5-14.5) % Plt Count (130-400) K/uL MPV (7.4-10.4) fL Immature Gran % (Auto) % Neut % (Auto) % Lymph % (Auto) % Cass % (Auto) % Eos % (Auto) % Baso % (Auto) % Immature Gran # (Auto) (0.00-0.02) K/uL Neut # (Auto) (1.4-6.5) K/uL Lymph # (Auto) (1.2-3.4) K/uL Cass # (Auto) (0.11-0.59) K/uL Eos # (Auto) (0-0.5) K/uL Baso # (Auto) (0-0.2) K/uL PT 11.1 (9.0-12.0) Seconds INR 1.1 (0.9-1.1) APTT 29.1 (21.0-31.0) Seconds PTT Ratio 1.1 Sodium 140 (136-145) mmol/L Potassium 3.8 (3.5-5.1) mmol/L Chloride 110 H (98-107) mmol/L Carbon Dioxide 27 (21-32) mmol/L Anion Gap 3.0 (3-11) BUN 13 (7-18) mg/dl Creatinine 1.18 (0.6-1.4) mg/dl Est Cr Clr Drug Dosing 46.9 ml/min Est GFR ( Amer) 66.2 Est GFR (Non-Af Amer) 57.1 BUN/Creatinine Ratio 11.3 (10-20) Glucose 91 (70-99) mg/dl POC Glucose (70-99) mg/dl Calcium 8.6 (8.5-10.1) mg/dl Magnesium 1.7 L (1.8-2.4) mg/dl Total Bilirubin 0.8 (0.2-1) mg/dl AST 12 L (15-37) U/L ALT 16 (12-78) U/L Alkaline Phosphatase 91 (45-117) U/L Total Protein 5.9 L (6.4-8.2) gm/dl Albumin 3.0 L (3.4-5.0) gm/dl Globulin 2.9 (2.5-4.0) gm/dl Albumin/Globulin Ratio 1.0 (0.9-2) Blood Type O Positive Antibody Screen NEGATIVE 04/01/19 03/31/19 Range/Units 06:31 18:17 WBC 6.48 (4.8-10.8) K/uL RBC 4.42 L (4.7-6.1) M/uL Hgb 13.1 L (14.0-18.0) g/dL Hct 39.8 L (42-52) % MCV 90.0 (80-100) fL MCH 29.6 (25-34) pg MCHC 32.9 (32-36) g/dL RDW Std Deviation 44.5 (36.4-46.3) fL RDW Coeff of Jamaal 13.4 (11.5-14.5) % Plt Count 244 (130-400) K/uL MPV 10.0 (7.4-10.4) fL Immature Gran % (Auto) 0.2 % Neut % (Auto) 69.5 % Lymph % (Auto) 17.0 % Cass % (Auto) 7.6 % Eos % (Auto) 5.2 % Baso % (Auto) 0.5 % Immature Gran # (Auto) 0.01 (0.00-0.02) K/uL Neut # (Auto) 4.51 (1.4-6.5) K/uL Lymph # (Auto) 1.10 L (1.2-3.4) K/uL Cass # (Auto) 0.49 (0.11-0.59) K/uL Eos # (Auto) 0.34 (0-0.5) K/uL Baso # (Auto) 0.03 (0-0.2) K/uL PT (9.0-12.0) Seconds INR (0.9-1.1) APTT (21.0-31.0) Seconds PTT Ratio Sodium (136-145) mmol/L Potassium (3.5-5.1) mmol/L Chloride (98-107) mmol/L Carbon Dioxide (21-32) mmol/L Anion Gap (3-11) BUN (7-18) mg/dl Creatinine (0.6-1.4) mg/dl Est Cr Clr Drug Dosing ml/min Est GFR ( Amer) Est GFR (Non-Af Amer) BUN/Creatinine Ratio (10-20) Glucose (70-99) mg/dl POC Glucose 100 H (70-99) mg/dl Calcium (8.5-10.1) mg/dl Magnesium (1.8-2.4) mg/dl Total Bilirubin (0.2-1) mg/dl AST (15-37) U/L ALT (12-78) U/L Alkaline Phosphatase (45-117) U/L Total Protein (6.4-8.2) gm/dl Albumin (3.4-5.0) gm/dl Globulin (2.5-4.0) gm/dl Albumin/Globulin Ratio (0.9-2) Blood Type Antibody Screen
[2019-04-01] MEDS ORDERED: PIPERACILLIN/TAZOBACTAM 3.375 GM in DEXTROSE 5% 100 ML IV SCH (18:00)
--- NOTE | 2019-04-01 22:26 | Hospitalist Progress Note ---
Date of Service April 01, 2019 Assessment & Plan (1) Pneumoperitoneum: Concern for esophageal vs. ileal vs. gastric perforation although is very stable and has had this for at least 2 days from his prior XR. I would favor gastroesophageal leak given prior ?fundoplication with small leak and increasing need for pepto-bismol recently. IV Zosyn IV pantoprazole drip tolerating PO clear liquid diet Appreciate surgery input. Discussed with Dr Ibarra: currently non surgical management at this time. (2) DVT prophylaxis: Deferred pending surgical Subjective Patient reports feeling well and has no symptoms. Patient states he tolerated food. Review of Systems Review of Systems: All systems reviewed & are unremarkable except as noted in HPI & below Physical Exam Physical Exam: Constitutional: WD/WN, vitals as above Eyes: + anicteric sclerae; normal pupil size ENMT: external ear and nose normal, oropharynx normal Neck: trachea midline, no thyromegaly Respiratory: normal respiratory effort, lungs clear to auscultation Cardiovascular: RRR, no murmur, no edema Gastrointestinal (Abdomen): Inspection/Auscultation: abdomen normal to inspection, + abdomen distended and normal bowel sounds Percussion/Palpation: abdomen soft; abdomen nontender, no guarding and abdomen not rigid Musculoskeletal: no cyanosis or clubbing, extremities motor strength 5/5 Skin: no rashes, warm and dry Neurologic: moves all extremities and awake; no focal motor deficits and not confused Speech / Cognition: normal speech Motor/Sensory: no tremor and no pronator drift Psychiatric: A+Ox3, euthymic affect Lymphatic: no cervical or axillary lymphadenopathy Results & Data Vital Signs (Past 12 Hours) Vital Signs Temp Pulse Pulse Resp BP BP Pulse Ox 04/01/19 20:20 36.5 C 62 18 169/87 H 95 04/01/19 19:58 36.8 C 59 L 18 102/63 96 04/01/19 16:15 72 04/01/19 15:34 36.3 C L 61 18 139/72 94 04/01/19 11:22 36.8 C 58 L 18 148/80 H 97 PG Care Time/CCT Total # of Minutes Spent Total Time Spent with Patient: Total time spent is greater than 50% in coordination of care (as documented) at patient's floor/unit and/or counseling patient:
[2019-04-02] MEDS ORDERED: Nursing to Pharmacy Communication ONE (00:32)
[2019-04-02] MEDS: PANTOprazole 40 MG in DEXTROSE 5% 100 ML IV SCH ×3 (01:05→10:41)
[2019-04-02] MEDS: PIPERACILLIN/TAZOBACTAM 3.375 GM in DEXTROSE 5% 100 ML IV SCH ×2 (01:07→08:59)
--- NOTE | 2019-04-02 10:21 | XRay Report ---
ABDOMEN 2 VIEWS CLINICAL HISTORY: Intraperitoneal free air. FINDINGS: Supine and erect abdominal radiographs are compared to study dated 04/01/2019 and correlated with abdominal CT dated 03/31/2019. There is a nonobstructed abdominal bowel gas pattern. Enteric con trast is present in the left colon. Cholecystectomy clips are noted in the right upper quadrant. Intr aperitoneal free air is again seen below the diaphragm. There are nonobstructing right renal calculi. The skeletal structures are osteopenic and appear intact. There is lumbosacral spondylosis. A right hip arthroplasty is in place. IMPRESSION: 1. Nonobstructed abdominal bowel gas pattern. 2. Intraperitoneal free air is again seen below the diaphragm. 3. Right-sided nephrolithiasis. Electronically signed by: Barry Parnell M.D. 04/02/2019 10:20 AM
[2019-04-02] MEDS: LACTATED RINGER'S 1,000 ML IV SCH (10:41)
[2019-04-02 11:34] LABS: Basophils # (auto) 0.02 K/uL (0-0.2); Basophils % (auto) 0.2 %; Eosinophils # (auto) 0.26 K/uL (0-0.5); Eosinophils % (auto) 2.4 %; Hematocrit (blood only) 36.8 % (42-52); Hemoglobin 12.5 g/dL (14.0-18.0); Immature Granulocytes # (auto) 0.01 K/uL (0.00-0.02); Immature Granulocytes % (auto) 0.1 %; Lymphocytes # (auto) 0.98 K/uL (1.2-3.4); Lymphocytes % (auto) 9.2 %; Mean Corpuscular Hemoglobin 30.3 pg (25-34); Mean Corpuscular Volume 89.1 fL (80-100); Mean Platelet Volume 9.6 fL (7.4-10.4); Monocytes # (auto) 0.63 K/uL (0.11-0.59); Monocytes % (auto) 5.9 %; Neutrophils % (auto) 82.2 %; Platelet Count 243 K/uL (130-400); RDW Coefficient of Variation 13.4 % (11.5-14.5); RDW Standard Deviation 43.9 fL (36.4-46.3); Red Blood Count 4.13 M/uL (4.7-6.1)
--- NOTE | 2019-04-02 11:58 | CT Scan Report ---
CT SCAN OF THE ABDOMEN AND PELVIS WITHOUT CONTRAST CLINICAL HISTORY: Free intraperitoneal air. POSSIBLE PERFORATED VISCUS COMPARISON STUDY: 1. 1510 TECHNIQUE: CT scan of the abdomen and pelvis was performed from the lung bases to the proximal femurs . Images are reviewed in the axial, sagittal, and coronal planes. IV contrast was not administered fo r this examination. A dose lowering technique was utilized adhering to the principles of ALARA. CT DOSE: 322.74 mGy.cm FINDINGS: Lower chest: There are dependent atelectatic changes. Liver: There is stable multiple hepatic hypodense lesions which approach water attenuation likely rep resent cysts Gallbladder: Surgically absent Spleen: Normal in size and attenuation. Pancreas: Unremarkable. Adrenal glands: There is minor adrenal gland thickening Kidneys: There is right-sided nephrolithiasis. There is no hydronephrosis. No ureteral calculi are vi sualized. Bowel: There are multiple fluid-filled upper abdominal small bowel loops. The distal small bowel is o f normal caliber. There is contrast within nondilated colon. There is chronic diverticulosis. There i s no evidence of acute peridiverticular inflammatory change. A low-grade partial small bowel obstruct ion cannot be excluded although the findings basically be secondary to an ileus. No contrast extravas ation is visualized. Peritoneum: There is persistent free intraperitoneal air, similar in volume to the preceding study. T his could be secondary to a perforated viscus or represent a benign pneumoperitoneum. Clinical correl ation will be necessary for differentiation. Vasculature: The abdominal aorta is normal in course and caliber. Adenopathy: None. Pelvic viscera: The prostate is enlarged. There is a fat-containing left inguinal hernia. Skeletal structures: There is persistent right symphysis pubis sclerosis. IMPRESSION: 1. Persistent moderate pneumoperitoneum. This could be secondary to a perforated viscus or represent benign pneumoperitoneum. Clinical correlation will be necessary for differentiation 2. No evidence of contrast extravasation 3. Diverticulosis. No evidence of acute diverticulitis 4. Mildly prominent fluid-filled upper abdominal small bowel loops. The findings could be secondary t o either a low-grade partial small bowel obstruction or ileus. 6. Fat-containing left inguinal hernia. 7. Right-sided nephrolithiasis ACT 112: Negative or not required by law. Electronically signed by: Mata Villareal M.D. 04/02/2019 11:57 AM
[2019-04-02 12:10] LABS: Albumin Level 3.2 gm/dl (3.4-5.0); BUN Creatinine Ratio 8.5 (10-20); Calcium 8.6 mg/dl (8.5-10.1); Creatinine Clr Calc Pharmacy 45.2 ml/min; Est GFR (Non-African American) 54.3; Potassium 3.7 mmol/L (3.5-5.1)
[2019-04-02 12:13] LABS: Albumin Globulin Ratio 1.1 (0.9-2); Bilirubin,Total 0.6 mg/dl (0.2-1); Globulin 2.9 gm/dl (2.5-4.0); Total Protein 6.1 gm/dl (6.4-8.2)
--- NOTE | 2019-04-02 12:40 | Surgery Progress Note ---
Date of Service April 02, 2019 Assessment & Plan (1) Pneumoperitoneum: 83-year-old male with asymptomatic and incidental pneumoperitoneum of unknown etiology. At this time it does not appear that require surgical intervention. Slight increase in wbc but otherwise stable. Repeat CT with no extravasation of contrast, stable pneumoperitoneum. We discussed options, and patient would like to go home as soon as possible. Will advance diet to low fiber as tolerated, may be discharged today or tomorrow. Return precautions given. would send out on PPI, abx, avoid nsaids. No surgical intervention indicated at this time Continue antibiotics, ppi, convert to oral advance diet as tolerated to low fiber avoid nsaids return precautions given would recommend outpatient follow up with GI and Dr. Tompkins in [place]. Dr. Hung covering over weekend. Subjective 83-year-old male admitted with incidental finding of pneumoperitoneum on abdominal x-ray performed on Friday for intermittent abdominal bloating and diarrhea. He remains completely asymptomatic with no abdominal pain. He did have some confusion overnight, but is back to baseline. Physical Exam Constitutional: WD/WN, vitals as above Gastrointestinal (Abdomen): normal bowel sounds, soft, nontender, no hepatosplenomegaly Inspection/Auscultation: + abdominal surgical incision Percussion/Palpation: + tympanic to percussion; no guarding and abdomen not rigid Results & Data Vital Signs (Past 12 Hours) Vital Signs Temp Pulse Pulse Resp BP Pulse Ox 04/02/19 11:26 36.8 C 108 H 16 110/66 98 04/02/19 07:29 70 04/02/19 07:03 36.4 C L 60 18 120/66 90 Laboratory Results Laboratory Results - last 24 hr 04/02/19 04/02/19 11:26 11:26 WBC 10.70 RBC 4.13 L Hgb 12.5 L Hct 36.8 L MCV 89.1 MCH 30.3 MCHC 34.0 RDW Std Deviation 43.9 RDW Coeff of Jamaal 13.4 Plt Count 243 MPV 9.6 Immature Gran % (Auto) 0.1 Neut % (Auto) 82.2 Lymph % (Auto) 9.2 Colbert % (Auto) 5.9 Eos % (Auto) 2.4 Baso % (Auto) 0.2 Immature Gran # (Auto) 0.01 Neut # (Auto) 8.80 H Lymph # (Auto) 0.98 L Colbert # (Auto) 0.63 H Eos # (Auto) 0.26 Baso # (Auto) 0.02 Sodium 138 Potassium 3.7 Chloride 108 H Carbon Dioxide 27 Anion Gap 3.0 BUN 11 Creatinine 1.23 Est Cr Clr Drug Dosing 45.2 Est GFR ( Amer) 63.0 Est GFR (Non-Af Amer) 54.3 BUN/Creatinine Ratio 8.5 L Glucose 123 H Calcium 8.6 Total Bilirubin 0.6 AST 12 L ALT 14 Alkaline Phosphatase 83 Total Protein 6.1 L Albumin 3.2 L Globulin 2.9 Albumin/Globulin Ratio 1.[address] abd pelvis oral and IV con CLINICAL HISTORY: 83 years-old Male presenting with abn outside xrays, ?obstuction/ileus vs perforation. TECHNIQUE: Multidetector CT of the abdomen and pelvis was performed after the administration of oral and intravenous contrast. IV contrast: 93 mL of Optiray 320. One or more dose lowering techniques were used consistent with the principles of ALARA (as low as reasonably achievable), including automatic exposure control, mA or kV adjustment to individual patient size, and/or use of iterative reconstruction. COMPARISON: None. CT DOSE (mGy.cm): The estimated cumulative dose is 338.06 mGy.cm. FINDINGS: Lead Quality Technician topogram: Orthopedic hardware. Lung bases: Multichamber enlargement of the heart. Aortic valve calcification. No pericardial or pleural effusion. Minimal dependent changes likely atelectasis. Trace emphysema and bronchitis suggested. Liver: Congenital hypoplasia of the medial segments of the left hepatic lobe. Multiple well-defined hypodense lesions, likely hepatic cysts. Patent hepatic vasculature. Biliary: Mild biliary ductal prominence likely a reservoir effect in the post cholecystectomy state. Gallbladder surgically absent. Pancreas: Moderate parenchymal atrophy. Spleen: Normal. Adrenal glands: Normal. Kidneys and ureters: Nonobstructing calculus at the lower pole of the right kidney measuring 6 mm. No hydronephrosis. Extrarenal pelvis on the right. Ureters nondistended. Bladder: Circumferential bladder wall thickening. Pelvic organs: Prostate enlargement likely secondary to benign prostatic hyperp lasia. Streak artifact limits evaluation of the pelvis. Bowel: Diverticulosis of the proximal sigmoid and descending colon without wall thickening or pericolonic inflammatory change. The cecum is oriented superiorly with the terminal ileum suggesting a stretched mesentery. There is dilated small bowel without a focal transition point. Oral contrast has not yet reached the terminal ileum. Gaseous distended distal esophagus. No focal bowel wall discontinuity. Small bowel in the right midabdomen is mildly thick walled and may be abnormal enhancing (series 3 image 231). Peritoneal cavity: Extensive free intraperitoneal gas. Gas is also noted within the mesentery. No extravasation of oral contrast. Lymph nodes: No enlarged lymph nodes in the abdomen or pelvis. Vasculature: Normal noncontrast appearance. Abdominal wall: Fat-containing inguinal hernias, left greater than right. Musculoskeletal: Total right hip arthroplasty. Degenerative changes of the spine. IMPRESSION: 1. Free intraperitoneal gas consistent with perforated hollow viscus. Surgical consultation is necessary. There is no extravasation of oral contrast from the bowel lumen to identify a site of perforation. Question abnormal enhancing distal loop of ileum and questionable stretching of the mesentery. It is difficult to exclude an internal hernia, however, no focal transition point is identified. No high-grade or complete bowel obstruction. A low-grade obstruction is also difficult to exclude. 2. Diverticulosis coli. No diverticulitis. 3. 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 4. Smoking-related lung injury. The report will be called/faxed according to standard departmental protocol for a critical finding. ACT 112: Negative or not required by law. PG Care Time/CCT Total # of Minutes Spent Total Time Spent with Patient: Total time spent is greater than 50% in coordination of care (as documented) at patient's floor/unit and/or counseling patient:
== END 2019-04-02 15:44 | disposition home or self-care (01) | DRG 395 ==
LOC: ED 09:37 → SUATTDRO 16:12 → 2N 16:12